=== PATIENT | female | born 1955 | race Hispanic/Latino ===

== ENCOUNTER → 2016-11-25 | Outpatient (CLI) | payer BC ==
--- NOTE | 2016-11-25 14:03 | Diagnostic Imaging Report ---
INDICATION: Chronic bilateral knee pain, left greater than right. COMPARISON: None. FINDINGS: Frontal and lateral radiographic views of the bilateral knees were obtained. There is no radiographic evidence of acute fracture or dislocation. Joint spaces are maintained. No significant degenerative bony changes are identified. No unexpected radiopaque foreign bodies are seen. Soft tissue structures are unremarkable. Finally, there is no large joint effusion. IMPRESSION: Unremarkable radiographic exam of the bilateral knees. Dictated by: Dictated on workstation # [id number]
== END ==
LOC: RAD 13:26
PROVIDERS: ATTEND Nurse Practitioner Family
DX: M25.561 Pain in right knee (principal); M25.562 Pain in left knee

== ENCOUNTER → 2017-06-08 | Outpatient (CLI) | payer BC ==
--- NOTE | 2017-06-08 14:05 | Diagnostic Imaging Report ---
PROCEDURE: US Thyroid. TECHNIQUE: Multiple real-time grayscale images were obtained of the thyroid in various projections. INDICATION: Neck swelling FINDINGS: The right thyroid lobe is 1.9 x 0.6 x 0.6 CM. The left lobe is 2 x 0.5 x 0.6 CM. The thyroid gland is heterogenous and small in size with no discrete nodule. IMPRESSION: Heterogenous small size thyroid gland which could be sequela of prior thyroiditis. Dictated by: Dictated on workstation # [id number]
== END ==
LOC: RAD 12:51
PROVIDERS: ATTEND Internal Medicine
DX: E04.9 Nontoxic goiter, unspecified (principal)
CPT/HCPCS: 76536

== ENCOUNTER 2019-07-08 14:06 | Outpatient (RCR) | payer BC | END 2019-08-14 15:54 | disposition home or self-care (01) | PROVIDERS: ATTEND Internal Medicine | DX: M75.81 Other shoulder lesions, right shoulder (principal); E03.9 Hypothyroidism, unspecified; M25.511 Pain in right shoulder ==

== ENCOUNTER → 2021-04-28 | Outpatient (CLI) | payer BC, MEDICARE ==
--- NOTE | 2021-04-28 18:56 | Diagnostic Imaging Report ---
EXAMINATION: Chest 2 view. HISTORY: Chronic cough >3 months. COMPARISON: None available. FINDINGS: Heart size and pulmonary vasculature are normal. The lungs are clear without consolidation, pleural effusion or pneumothorax. The osseous structures are intact. IMPRESSION: No acute radiographic abnormality in the chest. Dictated by: Dictated on workstation # [id number]
== END ==
LOC: RAD 16:58
PROVIDERS: ATTEND Internal Medicine
DX: R05.3 Chronic cough (principal)
CPT/HCPCS: 71046

== ENCOUNTER → 2021-09-28 | Outpatient (CLI) | payer MEDICARE ==
--- NOTE | 2021-09-28 12:36 | Diagnostic Imaging Report ---
INDICATION: Asymptomatic postmenopausal female. COMPARISON: None. FINDINGS: AP Spine L1-L4: [BMD (g/cm2): 0.940] [T-Score: -2.2] [Z-Score: -1.7] [BMD Previous: NA] [BMD % Change: NA] LT Hip Neck: [BMD (g/cm2): 0.925] [T-Score: -0.8] [Z-Score: -0.5] LT Hip Total: [BMD (g/cm2):0.928] [T-Score:-0.6] [Z-Score: -0.7] [BMD Previous: NA] [BMD % Change: NA] RT Hip Neck: [BMD (g/cm2):0.860] [T-Score:-1.3] [Z-Score:-1.0] RT Hip Total: [BMD (g/cm2):0.871] [T-score:-1.1] [Z-Score:-1.2] [BMD Previous:NA] [BMD % Change:NA] *Indicates significant change from prior examination based on 95% confidence level. World Health Organization criteria for BMD interpretation classify patients as Normal (T-score at or above -1.0), Osteopenic (T-score between -1.0 and -2.5) or Osteoporotic (T-score at or below -2.5). LIMITATIONS AND MODIFICATION: None. FRACTURE RISK (FRAX SCORE): The ten year probability of (%): Major Osteoporotic Fracture: [8.4] Hip Fracture: [0.8] IMPRESSION: 1. Osteopenia (Low bone mass). 2. Baseline examination. 3. See below National Osteopor[employer] Foundation guidelines on when to potentially initiate pharmacologic therapy. Based on the National Osteoporosis Foundation Guidelines, pharmacologic treatment should be initiated in any of the following, unless clinical conditions suggest otherwise: * Any patient with prior fragility fracture of the hip or vertebrae. A spine fracture indicates 5X risk for subsequent spine fracture and 2X risk for subsequent hip fracture. * Osteoporosis (T-score <-2.5). * Postmenopausal women and men age 50 and older with low bone mass/osteopenia (T-score between -1.0 and -2.5) by DXA and 10-year major osteoporotic fracture greater than 20% or a 10-year probability of hip fracture greater than 3%. These fracture risks are supplied above in the FRAX score, if applicable. * Clinician judgement and/or patient preferences may indicate treatment for people with 10-year fracture probabilities above or below these levels. Dictated by: Dictated on workstation # [id number]
== END ==
LOC: RAD 10:30
PROVIDERS: ATTEND Internal Medicine
DX: M85.80 Other specified disorders of bone density and structure, unspecified site (principal); Z78.0 Asymptomatic menopausal state
CPT/HCPCS: 77080